=== PATIENT | female | born 1970 | race Caucasian/White ===

== ENCOUNTER 2018-10-21 11:45 | Day surgery (SDC) | payer OTHER ==
[~2018-10-21] VITALS: Ht 170.2 cm; Wt 104.8 kg
[~2018-10-21 11:45] MED LIST: ALEV1TAB PO; ALEV220T26 PO; LORA-243 PO; LR 1,000 ML IV ONE; MULT1TAB10 PO; nasocort
[2018-10-21] MEDS ORDERED: dexameTHASONE 10 MG/1 ML VIAL PRES.FREE (J1100) ONE (11:46)
[2018-10-21] MEDS ORDERED: ROPIvacaine 0.5% 30 ML INJECTION (J2795 PER 1MG) ONE (11:46)
[2018-10-21 12:14] LABS: URINE PREG TEST NEGATIVE (NEGATIVE)
[2018-10-21] MEDS ORDERED: TYLE1TAB5 PO (12:34)
[2018-10-21] MEDS ORDERED: MIDAZOLAM INJ 2 MG/2 ML VIAL (J2250) As Ordered ONE ×2 (12:53→14:46)
[2018-10-21] MEDS ORDERED: fentaNYL 100 MCG/2 ML INJECTION (J3010) As Ordered ONE (12:53)
[2018-10-21] MEDS ORDERED: ROCURONIUM BROMIDE 50 MG/5 ML VIAL As Ordered ONE (13:11)
[2018-10-21] MEDS ORDERED: fentaNYL 250 MCG/5 ML INJECTION (J3010) As Ordered ONE ×2 (13:11→16:40)
[2018-10-21] MEDS ORDERED: METOCLOPRAMIDE INJ 10MG/2ML VIAL (J2765) As Ordered ONE ×2 (13:11→18:03)
[2018-10-21] MEDS ORDERED: PROPOFOL 200 MG/20 ML VIAL As Ordered ONE (13:11)
[2018-10-21] MEDS ORDERED: ONDANSETRON 4MG/2ML VIAL (J2405) As Ordered ONE ×2 (13:11→18:02)
[2018-10-21] MEDS ORDERED: LIDOCAINE 2% INJ 100 MG/5 ML SDV (FOR ANES.) As Ordered ONE (13:11)
[2018-10-21] MEDS ORDERED: fentaNYL 100 MCG/2 ML INJECTION (J3010) IV ONE (14:00)
[2018-10-21] MEDS ORDERED: MIDAZOLAM INJ 2 MG/2 ML VIAL (J2250) IV ONE (14:00)
[2018-10-21] MEDS ORDERED: ceFAZolin 2 GM/D5W 50 ML IV BAG (J0690 PER 500MG) As Ordered ONE (14:55)
[2018-10-21] MEDS ORDERED: NEOSTIGMINE 10 MG/10 ML VIAL (J2710) As Ordered ONE (17:57)
[2018-10-21] MEDS ORDERED: GLYCOPYRROLATE INJ 0.2 MG/ML 2 ML VIAL As Ordered ONE (17:57)
[2018-10-21] MEDS ORDERED: HYDROmorphone HCL 2 MG/ML 1ML VIAL (J1170) As Ordered ONE (18:00)
[2018-10-21] MEDS ORDERED: dexameTHASONE 4 MG/ML 1ML VIAL (J1100) As Ordered ONE (18:02)
[2018-10-21] MEDS ORDERED: KETOROLAC 60 MG/2 ML VIAL (J1885) As Ordered ONE (18:02)
[2018-10-21] MEDS ORDERED: fentaNYL 100 MCG/2 ML INJECTION (J3010) IV PRN (19:00)
[2018-10-21] MEDS ORDERED: ONDANSETRON 4MG/2ML VIAL (J2405) IV PRN (19:00)
[2018-10-21] MEDS ORDERED: NORCO, ANEXSIA 5/325MG TABLET (HYDROcodone/ACETAMINOPHEN) PO PRN (19:00)
[2018-10-21] MEDS ORDERED: oxyCODONE 5MG TAB PO PRN ×2 (19:15)
[2018-10-21] MEDS ORDERED: LR 1,000 ML IV SCH (19:15)
[2018-10-21] MEDS ORDERED: NALOXONE INJ 0.4 MG/1 ML VIAL (J2310) As Ordered ONE ×2 (20:34→20:36)
[2018-10-21] MEDS ORDERED: NALOXONE INJ 0.4 MG/1 ML VIAL (J2310) IV ONE (21:00)
[2018-10-21 22:15] VITALS: BP 152/69
--- NOTE | 2018-10-28 09:21 | RO ---
DATE OF PROCEDURE: 10/21/2018 PREOPERATIVE DIAGNOSIS: Right chronic Achilles rupture. POSTOPERATIVE DIAGNOSIS: Right chronic Achilles rupture. SURGEON: Kimberly Garcia MD KNOCKER OFF: Domingo Elizabeth MD PROCEDURES: 1. Right chronic Achilles rupture tendon repair with hamstring allograft. 2. Debridement right Achilles tendon. 3. Flexor hallicis longus transfer to the calcaneus. 4. Calcaneal exostectomy (Alvina's deformity) ANESTHESIA: General anesthesia plus popliteal nerve block. ESTIMATED BLOOD LOSS: 5 mL. COMPLICATIONS: None. CONDITION: Stable to recovery. IMPLANTS: Arthrex Peak bio tenodesis screw times two measuring 6.25 x 15 mm, one 5.5 mm Peak screw anchor, one hamstring allograft (semitendinous). INDICATIONS: Gregoria Kennedy is a 48-year-old female with chronic Achilles rupture who has failed conservative management. Risks and benefits of surgery were discussed with the patient in detail and include but are not limited to infection, wound dehiscence, damage to nerves and blood vessels, tendon not healing, continued pain and stiffness, weakness, and need for additional procedure, blood clot. Despite these risks the patient wished to proceed with surgery. Informed consent was obtained in the office. PROCEDURE: Patient was met in the preoperative holding area where her right lower extremity was marked for the correct operative site. She was then taken to the postanesthesia care unit where she underwent a popliteal nerve block by anesthesia. Patient was then brought to the operating room. She received antibiotics within 60 minutes prior to incision. A well padded tourniquet was placed on her right upper thigh. She underwent general anesthesia and then was placed in the prone position. Her bony prominences were well padded. A Chlorhexidine scrub was performed to the right lower extremity. The right lower extremity was then prepped and draped in the normal sterile fashion. Patient's contralateral extremity ws examined prior to prepping and draping to assess for her normal tension from her Achilles tendon. An official time out was held to identify the correct patient, operative site and procedure were verified. Appropriate imaging was displaced in the operating room. An incision was made directly midline over the Achilles tendon. Careful dissection to the level of peritenon was performed with care to avoid the seral nerve. Peritenon was excised and there was found to be a large approximately 4 cm gap between the tendon ends. The entire tendon was very tendonitic and thickened with fairly poor degenerative tissue. Tendon was dissected out there was found to be a fair amount of scar tissue anterior to the gap at this point. A FiberWire stitch was placed through the proximal end of the tendon. Traction was placed on tendon for approximately 5 minutes which allowed us to close down the gap somewhat. For direct repair of the tendon, the tendon would have been under significant tension and patient's foot would have been in maximum plantar flexion. A decision was made to use an allograft tendon to bridge the gap which was approximately 1.5-2 cm with the patient in slight plantar flexion. This was a similar attention to her other side. The decision was also made to transfer the flexor hallicis longus tendon given the degree of tendinosis found in the patient's [place] Achilles. At this point the FHL tendon was identified. It was tracked distally and excised with a long handle knife in the medial to lateral direction with care to avoid the medial structures. The tendon was whipped stitched and sized to a 6. It was then transferred just anterior to the Achilles insertion and secured with a 6.25 times 15 mm bio tenodesis screw. We did ream for 6.5 mm. The tendon was tensioned in neutral and was found to have good tension. Once the transfer was complete attention was turned back to the Achilles rupture. Semitendinous graft was selected. It was secured just anterior and medial to the Achilles insertion with a 6.25 mm bio tenodesis screw. The tendon was then brought up proximally and woven through the proximal aspect of the tendon in the medial to lateral direction. It was then secured back distally on the anterolateral aspect of the Achilles insertion using a 5.5 mm cork screw. There was good tension on the graft with the foot in slight plantar flexion. At this point the small amount of distal stump ws secured to the graft. The two sides of the graft were then also secured together using 0-Vicryl. Prior to this two sutures using 0 Vicryl had been used to attach both the medial and lateral proximal aspects of the graft to the [place] Achilles tendon. At this point the graft was found to be secure and there was a nice repair of the Achilles tendon and both the tendon and FHL tendon transfer had good tension. Copious irrigation was performed. The peritenon was closed while possible. Subcutaneous tissues were closed using 3-0 Vicryl and skin was closed using 3-0 Nylon. Patient was placed in to a well padded splint in slight plantar flexion. She was then brought back to the supine position on the hospital bed and extubated without difficulty. She was transferred to the recovery room in stable condition. All counts were correct at the end of the case. PLAN: Patient will be nonweightbearing for at least 6 weeks. We will see her back in one week for a wound check and transfer to a cast. She will be on Xarelto 10 mg by mouth daily for DVT prophylaxis.
== END 2018-10-21 22:20 | disposition home or self-care (01) ==
LOC: M SDC 11:45
PROVIDERS: ATTEND Orthopaedic Surgery
DX: M66.361 Spontaneous rupture of flexor tendons, right lower leg (principal); M76.61 Achilles tendinitis, right leg; Z87.891 Personal history of nicotine dependence; Z79.899 Other long term (current) drug therapy
CPT/HCPCS: 27652; 27691; 28119; 64445; 84703; C1713; C1762; J0690; J1100; J1170; J1885; J2250; J2405; J2710; J2765; J2795; J3010

== ENCOUNTER → 2021-01-14 | Outpatient (REF) | payer OTHER ==
[~2021-01-14] MED LIST changes: -LR 1,000 ML IV ONE; +TYLE1TAB5 PO
[2021-01-14 17:50] LABS: BASO # 0.1 10^3/uL (0.0-0.2); EOS # 0.6 10^3/uL (0.0-0.5); EOS % 6.4 % (0.0-3.0); HEMATOCRIT 43.8 % (36.0-47.0); HEMOGLOBIN 13.7 g/dl (12.0-15.5); LYMPH # 3.6 10^3/uL (1.5-5.0); LYMPH % 36.3 % (24.0-44.0); MEAN CORPUSCULAR HEMOGLOBIN 27.3 pg (27.0-33.0); MEAN CORPUSCULAR HGB CONC 31.3 g/dl (32.0-36.5); MEAN CORPUSCULAR VOLUME 87.3 fl (80.0-96.0); MONO # 0.6 10^3/uL (0.0-0.8); MONO % 6.1 % (2.0-8.0); NEUTROPHILS % 49.6 % (36.0-66.0); PLATELET COUNT, AUTOMATED 353 10^3/uL (150-450); RED BLOOD COUNT 5.02 10^6/uL (4.00-5.40)
[2021-01-14 18:10] LABS: TOTAL PROTEIN,RANDOM URINE 12.6 MG/DL (0.0-12.0)
[2021-01-14 18:13] LABS: APPEARANCE, URINE CLEAR (CLEAR); BACTERIA, URINE AUTO NEGATIVE (NEGATIVE); BILIRUBIN, URINE AUTO NEGATIVE (NEGATIVE); BLOOD, URINE BLOOD NEGATIVE (NEGATIVE); COLOR, URINE YELLOW (YELLOW); GLUCOSE, URINE (UA) AUTO NEGATIVE (NEGATIVE); KETONE, URINE AUTO NEGATIVE (NEGATIVE); LEUKOCYTE ESTERASE, URINE AUTO NEGATIVE (NEGATIVE); MUCUS, URINE SMALL (NEGATIVE); NITRITE, URINE AUTO NEGATIVE (NEGATIVE); PROTEIN, URINE AUTO NEGATIVE (NEGATIVE); RBC, URINE AUTO 1 /HPF (0-3); SPECIFIC GRAVITY URINE AUTO 1.025 (1.002-1.035); SQUAMOUS EPITHELIAL CELL UR AU 1 /HPF (0-6); UROBILINOGEN, URINE AUTO 0.2 mg/dL (0.0-2.0); WBC, URINE AUTO 0 /HPF (0-3)
[2021-01-14 18:23] LABS: ALT/SGPT 30 U/L (12-78); BILIRUBIN,DIRECT < 0.1 MG/DL (0.0-0.2); BILIRUBIN,TOTAL 0.2 MG/DL (0.2-1.0); BLOOD UREA NITROGEN 25 MG/DL (7-18); C REACTIVE PROTEIN QUANTITATIV 1.48 MG/DL (0.00-0.30); CALCIUM LEVEL 9.2 MG/DL (8.5-10.1); CARBON DIOXIDE LEVEL 27 MEQ/L (21-32); CHLORIDE LEVEL 107 MEQ/L (98-107); COMPLEMENT C3 127 MG/DL (90-180); COMPLEMENT C4 33 MG/DL (10-40); CPK CREATINE PHOSPHOKINASE 88 U/L (26-192); CREATININE FOR GFR 0.76 MG/DL (0.55-1.30); GLOMERULAR FILTRATION RATE > 60.0 (>51); GLUCOSE, FASTING 82 MG/DL (70-100); IMMUNOGLOBULIN G 936 MG/DL (681-1648); IRON (FE) 53 UG/DL (50-170); MAGNESIUM LEVEL 2.1 MG/DL (1.8-2.4); PHOSPHORUS LEVEL 3.5 MG/DL (2.5-4.9); POTASSIUM SERUM 3.9 MEQ/L (3.5-5.1); RHEUMATOID FACTOR QUANT < 10.0 IU/ML (<15.0); SODIUM LEVEL 140 MEQ/L (136-145); TOTAL 25(OH) VITAMIN D 26.8 NG/ML (30.0-100.0); TOTAL PROTEIN 7.5 GM/DL (6.4-8.2); VITAMIN B12 LEVEL 897 PG/ML (247-911)
[2021-01-14 18:50] LABS: ERYTHROCYTE SEDIMENTATION RATE 7 mm/hr (0-30)
[2021-01-15 14:05] LABS: ALBUMIN 4.51 GM/DL (3.29-5.55); ALBUMIN % 60.1 % (55.8-66.1); ALPHA-1-GLOBULIN % 4.3 % (2.9-4.9); ALPHA-1-GLOBULINS 0.32 GM/DL (0.17-0.41); ALPHA-2-GLOBULINS 0.81 GM/DL (0.42-0.99); ALPHA-2-GLOBULINS % 10.8 % (7.1-11.8); BETA-1-GLOBULINS 0.47 GM/DL (0.28-0.60); BETA-1-GLOBULINS % 6.2 % (4.7-7.2); BETA-2-GLOBULINS % 5.3 % (3.2-6.5); GAMMA GLOBULIN % 13.3 % (11.1-18.8)
== END ==
LOC: M SFHCRHEU 15:39
PROVIDERS: ATTEND Internal Medicine
DX: M06.4 Inflammatory polyarthropathy (principal); M79.10 Myalgia, unspecified site; R21 Rash and other nonspecific skin eruption; R53.82 Chronic fatigue, unspecified

== ENCOUNTER → 2021-02-25 | Outpatient (CLI) | payer OTHER ==
--- NOTE | 2021-02-26 14:31 | SLEEPHOME ---
DATE: 02/25/2021 ORDERED BY: Marisol Salazar MD Diagnostic home sleep testing was performed due to concern for the obstructive sleep apnea syndrome in this patient with a history of fatigue. For testing, a nocturnal T3 respiratory monitoring device was used. Continuous record was made of pulse, oxygen saturation, air flow, chest and abdominal strain, and body position. Nine hours and 59 minutes of data were reviewed. There were 9 hours and 16 minutes marked as time in bed. During the interval marked time in bed, there were 51 respiratory events identified of 10 seconds in duration or greater for a respiratory event index of 5.5. The events were primarily obstructive, 12 mixed and central apneas are seen. Baseline pulse rate was 80. Pulse rate ranged 56 to 112. Baseline saturation was 92%. Saturations fell to 84%. Testing was performed in both the supine and nonsupine positions. IMPRESSION: Abnormal home sleep testing with repetitive respiratory events and oxygen desaturations to 84% with a respiratory event index of 5.5 is consistent with the obstructive sleep apnea syndrome. RECOMMENDATION: The patient should be encouraged to undergo a formal sleep evaluation.
== END ==
LOC: M SLEEP HO 10:59
PROVIDERS: ATTEND Internal Medicine
DX: R53.83 Other fatigue (principal)

== ENCOUNTER → 2021-07-01 | Outpatient (REF) | payer OTHER | LOC: M LAB REF 19:32 | PROVIDERS: ATTEND Physician Assistant | DX: R21 Rash and other nonspecific skin eruption (principal) ==

== ENCOUNTER → 2022-02-10 | Outpatient (REF) | payer OTHER ==
[2022-02-10 16:58] LABS: APPEARANCE, URINE CLEAR (CLEAR); BACTERIA, URINE AUTO NEGATIVE (NEGATIVE); BILIRUBIN, URINE AUTO NEGATIVE (NEGATIVE); BLOOD, URINE BLOOD NEGATIVE (NEGATIVE); COLOR, URINE STRAW (YELLOW); GLUCOSE, URINE (UA) AUTO NEGATIVE (NEGATIVE); KETONE, URINE AUTO NEGATIVE (NEGATIVE); LEUKOCYTE ESTERASE, URINE AUTO NEGATIVE (NEGATIVE); NITRITE, URINE AUTO NEGATIVE (NEGATIVE); PROTEIN, URINE AUTO NEGATIVE (NEGATIVE); RBC, URINE AUTO 1 /HPF (0-3); SQUAMOUS EPITHELIAL CELL UR AU 0 /HPF (0-6); UROBILINOGEN, URINE AUTO 0.2 mg/dL (0.0-2.0); WBC, URINE AUTO 2 /HPF (0-3)
[2022-02-10 17:00] LABS: BASO # 0.1 10^3/uL (0.0-0.2); BASO % 0.9 % (0.0-1.0); EOS # 0.3 10^3/uL (0.0-0.5); EOS % 3.7 % (0.0-3.0); HEMATOCRIT 42.6 % (36.0-47.0); HEMOGLOBIN 13.4 g/dl (12.0-15.5); LYMPH # 2.6 10^3/uL (1.5-5.0); LYMPH % 32.9 % (24.0-44.0); MEAN CORPUSCULAR HEMOGLOBIN 27.8 pg (27.0-33.0); MEAN CORPUSCULAR HGB CONC 31.5 g/dl (32.0-36.5); MEAN CORPUSCULAR VOLUME 88.4 fl (80.0-96.0); MONO # 0.6 10^3/uL (0.0-0.8); MONO % 7.5 % (2.0-8.0); NEUTROPHILS # 4.3 10^3/uL (1.5-8.5); NEUTROPHILS % 54.9 % (36.0-66.0); PLATELET COUNT, AUTOMATED 402 10^3/uL (150-450); RED BLOOD COUNT 4.82 10^6/uL (4.00-5.40); WHITE BLOOD COUNT 7.8 10^3/uL (4.0-10.0)
[2022-02-10 17:16] LABS: CREATININE,RANDOM URINE 31.3 MG/DL; TOTAL PROTEIN,RANDOM URINE 10.2 MG/DL (0.0-12.0)
[2022-02-10 17:18] LABS: ALT/SGPT 42 U/L (12-78); BILIRUBIN,DIRECT < 0.1 MG/DL (0.0-0.2); BILIRUBIN,TOTAL 0.3 MG/DL (0.2-1.0); BLOOD UREA NITROGEN 17 MG/DL (7-18); C REACTIVE PROTEIN QUANTITATIV 1.24 MG/DL (0.00-0.30); CALCIUM LEVEL 10.2 MG/DL (8.5-10.1); CARBON DIOXIDE LEVEL 30 MEQ/L (21-32); CHLORIDE LEVEL 106 MEQ/L (98-107); COMPLEMENT C3 137 MG/DL (90-180); COMPLEMENT C4 35 MG/DL (10-40); CREATININE FOR GFR 0.73 MG/DL (0.55-1.30); GLOMERULAR FILTRATION RATE > 60.0 (>51); GLUCOSE, FASTING 98 MG/DL (70-100); POTASSIUM SERUM 4.5 MEQ/L (3.5-5.1); SODIUM LEVEL 142 MEQ/L (136-145); TOTAL PROTEIN 7.6 GM/DL (6.4-8.2)
[2022-02-10 17:26] LABS: TOTAL 25(OH) VITAMIN D 29.2 NG/ML (30.0-100.0)
[2022-02-10 17:36] LABS: ERYTHROCYTE SEDIMENTATION RATE 12 mm/hr (0-30)
== END ==
LOC: M SFHCRHEU 13:48
PROVIDERS: ATTEND Internal Medicine
DX: M06.4 Inflammatory polyarthropathy (principal); E55.9 Vitamin D deficiency, unspecified

== ENCOUNTER → 2022-03-17 | Outpatient (CLI) | payer OTHER | LOC: M PLAIMG 14:03 | PROVIDERS: ATTEND Internal Medicine | DX: M25.552 Pain in left hip (principal) ==

== ENCOUNTER → 2022-07-07 | Outpatient (REF) | payer OTHER | LOC: M SFHCRHEU 12:51 | PROVIDERS: ATTEND Internal Medicine | DX: E55.9 Vitamin D deficiency, unspecified (principal) ==

== ENCOUNTER → 2025-06-28 | Outpatient (CLI) | payer OTHER ==
[~2025-06-28] MED LIST changes: +CARDIAC STRESS TEST RESCUE BOX 1 KIT EA XX ONE; +METHACHOLINE KIT (6 VIAL.NEB PREMIX) INH ONE
== END ==
LOC: M CARPUL 13:56
PROVIDERS: ATTEND Family Medicine
DX: J45.909 Unspecified asthma, uncomplicated (principal)
CPT/HCPCS: 94070; 95070; J7674